=== PATIENT | male | born 1950 | race Asian ===

== ENCOUNTER 2022-10-07 10:20 | Emergency (ER) | payer MEDICARE, OTHER ==
[2022-10-07 10:43] LABS: BILIRUBIN,URINE NEGATIVE (NEGATIVE); GLUCOSE, URINE (UA) NEGATIVE (NEGATIVE); KETONES,URINE (UA) NEGATIVE (NEGATIVE); LEUKOCYTE ESTERASE, URINE NEGATIVE (NEGATIVE); NITRITE,URINE NEGATIVE (NEGATIVE); OCCULT BLOOD,URINE NEGATIVE (NEGATIVE); PROTEIN,URINE NEGATIVE (NEGATIVE); UROBILINOGEN,URINE 0.2 (NORMAL) E.U./dL (NORMAL)
[2022-10-07 10:45] LABS: CLARITY,URINE CLEAR (CLEAR)
[2022-10-07] MEDS ORDERED: PHENAZOPYRIDINE 100 MG TABLET PO STA (10:59)
[2022-10-07] MEDS ORDERED: NAPROXEN 250 MG TABLET PO STA (11:00)
[2022-10-07] MEDS ORDERED: CIPROFLOXACIN 250 MG TABLET PO STA (11:00)
[2022-10-07 11:13] LABS: POTASSIUM 3.7 mmol/L (3.5-5.0)
--- NOTE | 2022-10-07 11:50 | ED Physician Documentation ---
PD HPI MALE - Stated complaint Stated Complaint: MALE GI - Chief complaint Chief Complaint: General - History obtained from History obtained from: Patient - History of Present Illness Timing - onset: How many days ago (12) Timing - duration: Days (12) Timing - details: Gradual onset, Still present, Waxing and waning Associated symptoms: Dysuria, Urinary frequency (he has had feeling of having to push urine output and only getting small amounts. Feels incompletely empty. No flank pain.). No: Hematuria, Genital sore / lesion, Back pain Similar symptoms before: Has not had sx before Recently seen: Clinic (went to [facility] and seen, referred to ER for further testing. No urine nor blood tests done there, per pt.) Review of Systems Constitutional: denies: Fever, Chills GI: denies: Abdominal Pain, Nausea, Vomiting, Constipation : reports: Frequency, Hesitancy, Unable to Void Skin: denies: Rash, Lesions PD PAST MEDICAL HISTORY - Past Medical History Past Medical History: No Cardiovascular: Hypertension : Other - Past Surgical History Past Surgical History: No - Present Medications Home Medications: Ambulatory Orders Medication Instructions Recorded Confirmed Aspirin EC [Ecotrin] 81 mg PO DAILY 10/07/22 10/07/22 Atorvastatin Calcium 40 mg PO DAILY 10/07/22 10/07/22 Ciprofloxacin [Cipro] 250 mg PO BID 7 Days #14 tablet 10/07/22 Finasteride [Proscar] 5 mg PO DAILY 10/07/22 10/07/22 Fluticasone [Flonase] 1 sprays KANDIS DAILY 10/07/22 10/07/22 Lisinopril [Zestril] 10 mg PO DAILY 10/07/22 10/07/22 Loratadine [Claritin] 10 mg PO DAILY 10/07/22 10/07/22 Naproxen 250 mg PO BID 7 Days #14 tablet 10/07/22 Phenazopyridine HCl [Pyridium] 100 mg PO TID PRN #15 tablet 10/07/22 Tadalafil [Cialis] 10 mg PO PRN PRN 10/07/22 10/07/22 Tamsulosin [Flomax] 0.4 mg PO DAILY 10/07/22 10/07/22 Triamterene/Hydrochlorothiazid 1 each PO DAILY 10/07/22 10/07/22 [Maxzide 75 mg-50 mg Tablet] Zolpidem [Ambien] 5 mg PO HS PRN 10/07/22 10/07/22 - Allergies Allergies/Adverse Reactions: Allergies Allergy/AdvReac Type Severity Reaction Status Date / Time No Known Drug Allergies Allergy Verified 10/07/22 10:24 - Social History Does the pt smoke?: No Smoking Status: Never smoker PD ED PE NORMAL - Vitals Vital signs reviewed: Yes - General General: Alert and oriented X 3, No acute distress, Well developed/nourished - Abdomen Abdomen: Soft, Non tender - Male Male : Deferred - Back Back: No CVA TTP - Derm Derm: Normal color, Warm and dry Results - Vitals Vitals: Vital Signs - 24 hr 10/07/22 10/07/22 10:24 12:13 Temperature 36 C L 36.4 C L Heart Rate 65 68 Respiratory 16 20 Rate Blood Pressure 120/71 128/74 O2 Saturation 99 99 Oxygen O2 Source Room air - Labs Labs: Laboratory Tests 10/07/22 10/07/22 10:33 11:02 Sodium 132 L Potassium 3.7 Chloride 94 L Carbon Dioxide 27 Anion Gap 11.0 BUN 24 H Creatinine 1.0 Estimated GFR (MDRD) 73 L Glucose 109 H Calcium 9.0 Urine Color LIGHT YELLOW Urine Clarity CLEAR Urine pH 6.0 Ur Specific [place] 1.010 Urine Protein NEGATIVE Urine Glucose (UA) NEGATIVE Urine Ketones NEGATIVE Urine Occult Blood NEGATIVE Urine Nitrite NEGATIVE Urine Bilirubin NEGATIVE Urine Urobilinogen 0.2 (NORMAL) Ur Leukocyte Esterase NEGATIVE Ur Microscopic Review NOT INDICATED Urine Culture Comments NOT INDICATED PD Medical Decision Making - ED course Complexity details: reviewed results (Bladder scanner showed only 20 ml post void, so does seem to be emptying. Symptoms therefore seem more likely to bladder outlet irritation leading to sense of urgeny, most commonly UTI/protstate. His UA is normal but symptoms would still be most c/w infectious. Can treat, also ? inflamm cystitis.), considered differential (symptoms could be c/w UTI, urinary retention, prostatitis, other causes. ), d/w patient Departure - Departure Disposition: 01 Home, Self Care Clinical Impression: Urinary frequency, Dysuria Condition: Stable Record reviewed to determine appropriate education?: Yes Instructions: ED Dysuria Uncertain Cause Follow-Up: PUJA SHULTZ PA-C [Primary Care Provider] - Prescriptions: Ciprofloxacin [Cipro] 250 mg PO BID 7 Days #14 tablet Naproxen 250 mg PO BID 7 Days #14 tablet Phenazopyridine HCl [Pyridium] 100 mg PO TID PRN #15 tablet PRN Reason: Abdominal Pain Comments: Our bladder scanner is reading only a very small amount of urine in the bladder. Given your symptoms of discomfort and feeling that you have to urinate, rather than urinary retention it would be more likely infectious or inflammatory of the urethra and bladder. Your urine sample does not show an obvious infection but your symptoms would certainly be consistent with that. We should treat with an antibiotic as well as an anti-inflammatory and medication to help with bladder discomfort. This would treat inflammatory and infectious causes and help with your symptoms. The phenazopyridine to help with urinary discomfort will turn your urine orange- colored so not to worry about that. We will have you take an anti-inflammatory and antibiotic for the next week. I would anticipate improvement in your symptoms of other the next day or 2 and resolved by 3 to 4 days. Recheck if not better in that timeframe. Your basic blood test with kidney function are good. I sent your prescription to your preferred pharmacy. Discharge Date/Time: 10/07/22 12:14
[2022-10-07 12:14] VITALS: BP 128/74
== END 2022-10-07 12:14 | disposition home or self-care (01) ==
LOC: ED 10:20
DX: R30.0 Dysuria (principal); R35.0 Frequency of micturition; I10 Essential (primary) hypertension
CPT/HCPCS: 36415; 51798; 80048; 81003; 99283; A9270; 81001; 87086